=== PATIENT | female | born 2000 | race Caucasian/White ===

== ENCOUNTER 2021-05-22 17:48 | Emergency (ER) | payer BC, SELFPAY ==
[2021-05-22 17:59] VITALS: BP 128/82; BP 129/77; PULSE 100; RESP 16; TEMP 36.9; O2SAT 98; BMI 21.2
[2021-05-22 18:05] VITALS: BP 129/74; PULSE 100; RESP 16; TEMP 36.9; O2SAT 98
--- NOTE | 2021-05-22 18:11 | ED_ITS ---
HPI - Psych General Chief Complaint: Psychiatric Symptoms Stated Complaint: crisis Time Seen by Provider: 05/22/21 18:10 Source: patient and EMS Mode of arrival: EMS Limitations: no limitations History of Present Illness HPI Narrative: 20-year-old female with posttraumatic stress disorder, depression and previous thoughts of suicidal ideation presents the emergency department with thoughts of suicide ideation, and self inflicted wounds X1 day. She states that today she felt like she suddenly could not control her feelings, or her emotions, which prompted her to visit [facility] counseling service. She does not recall a particular trigger. She states that prior to speaking to them, she did not self-harm, however she expressed that she is feeling increased depression, overwhelmed, racing thoughts. She states after she hung up the phone with them she grabbed a knife, and wanted to stab herself in the throat, to end her life, however she did not stop her throat, instead she cut herself superficially to the left forearm. She states she has been suicidal in the past, has never acted on her plan, she has had no previous psych admissions. She denies alcohol, drug, tobacco use. She denies homicidal ideation. Denies tactile, visual, auditory hallucinations, chest pain, abdominal pain, nausea, vomiting, intentional overdoses, fevers, chills, weakness, shortness of breath. She currently takes Tamika LUTHER complaint: suicidal ideation, feels depressed and anxiety Onset (ago): day(s) (1) Duration: constant History of same: Yes Relieving factors: none Exacerbating factors: none Associated psychiatric symptoms: depression, suicidal ideation (With plan to stab herself in the throat with a knife) and racing thoughts Associated symptoms: denies other symptoms Treatments prior to arrival: none If self harm: admits thoughts of self harm, has plan (Stabbing) and self- inflicted trauma (Small superficial linear lacks to the left arm, not requiring sutures.) Related Data Allergies Allergy/AdvReac Type Severity Reaction Status Date / Time Penicillins Allergy Rash Verified 05/22/21 18:29 Review of Systems Review of Systems: Constitutional : No Fever, No Chills Eyes: No Eye Pain, No Swelling, No Redness Cardiovascular : No Chest Pain, No SOB Respiratory : No Cough, No Sputum, No Dyspnea Gastrointestinal : No Nausea, No Vomiting, No Diarrhea, No Hematochezia, No Melena Genitourinary : No Dysuria, No Urinary Frequency, No Hematuria Musculoskeletal : No Myalgias Skin : No Skin Lesions, No rash, positive skin laceration Neuro : No Weakness, No Numbness, No Paresthesias, No Dizziness, No Headache Psych : positive Anxiety, positive Depression, positive SI, NoHI All other systems reviewed and are negative [facility] Past Medical History Attestation statement: The following information was validated with the patient. Source: old records reviewed and nursing notes reviewed Social History Social History Advance Directives: No Advance Directives Information Provided: Yes Physical Exam Vital Signs: Vital Signs: Last Vital Signs Temp 98.4 F 05/22/21 18:05 Pulse 100 05/22/21 18:05 Resp 16 05/22/21 18:05 BP 129/74 05/22/21 18:05 Pulse Ox 98 05/22/21 18:05 Body Mass Index 21.2 Appearance: Alert. Oriented X3. No acute distress. Appears anxious. Eyes: Pupils equal, round and reactive to light. ENT: Pharynx normal. Neck: Normal inspection. Neck supple. CVS: Normal heart rate and rhythm. Pulses normal. Respiratory: No respiratory distress. Breath sounds normal. Abdomen: Soft and nontender. Skin: Skin warm and dry. Normal skin color. Normal skin turgor. + two linear superficial lacerations to left forearm, do not require sutures. Extremities: No lower extremity edema. No calf ttp Neuro: Oriented X 3. No motor deficit. No sensory deficit. CN 2-12 intact, No auditory/tactile/visual hallucinations Course Course Course Narrative: Physician observation started at 715pm Patient placed in [facility] sician observation because the patient needed more time for CARE team evaluation for disposition. At the time observation was started the patient's vitals were stable, patient is alert and oriented but slightly anxious, Neuro: nonfocal, CV RRR, Lungs clear MDM - Psych MDM Narrative Medical decision making narrative: 20-year-old female pmhx of PTSD brought in by ambulance from her college campus with concerns of self-inflicted wounds to the left forearm, and suicidal ideation with plan to stab herself in the throat with a knife X1 day. No new medications. No previous psych admissions. Denies alcohol, tobacco, and substance abuse. Denies visual, auditory, and tactile hallucinations. Basic labs will be ordered at this time, as well as a COVID, EtOH, drug screen, liver panel, urine test, and care team evaluation. Lab Data Result diagrams: 05/22/21 18:47 05/22/21 18:47 Labs: Lab Results 05/22/21 05/22/21 05/22/21 Range/Units 18:34 18:34 18:39 WBC (4.8-10.8) X10*3/uL RBC (4.20-5.50) X10*6/uL Hgb (12.0-16.0) g/dl Hct (37-47) % MCV (80-98) fL MCH (27.0-33.0) pg MCHC (31.0-35.0) g/dl RDW (11.0-16.0) % Plt Count (160-400) X10*3/uL MPV (9.4-12.3) fL Immature Gran % (Auto) (0.0-0.4) % Neut % (Auto) (45-73) % Lymph % (Auto) (20-40) % Jenkins % (Auto) (2-11) % Eos % (Auto) (0-4) % Baso % (Auto) (0-2) % Lymph # (Auto) (1.2-4.9) X10*3/uL Jenkins # (Auto) (0.1-1.2) X10*3/uL Eos # (Auto) (0.0-0.4) X10*3/uL Baso # (Auto) (0.0-0.2) X10*3/uL Abs Immat Gran (auto) (0.00-0.03) X10*3/uL Absolute Neuts (auto) (2.0-8.3) X10*3/uL Absolute Nucleated RBC (0.0-0.012) X10*3/uL Nucleated RBC % (auto) (0.0-0.2) /100WBC Sodium (135-145) mmol/L Potassium (3.3-5.1) mmol/L Chloride (96-108) mmol/L Carbon Dioxide (22-29) mmol/L Anion Gap (12-20) BUN (9-16) mg/dL Creatinine (0.5-1.4) mg/dL Estim Creat Clear Calc Estimated GFR Random Glucose (60-115) mg/dL Calcium (8.4-10.2) mg/dL Total Bilirubin (0.0-1.0) mg/dL Direct Bilirubin (0.0-0.5) mg/dL AST (5-31) U/L ALT (0-31) U/L Alkaline Phosphatase (39-117) U/L Total Protein (6.5-8.0) g/dL Albumin (3.5-5.0) g/dL Urine Test NEGATIVE (NEGATIVE) Urine Opiates Screen Not Detected (Not Detect) Urine Fentanyl Screen Not Detected (Not Detect) Ur Barbiturates Screen Not Detected (Not Detect) Ur Phencyclidine Scrn Not Detected (Not Detect) Ur Amphetamines Screen Not Detected (Not Detect) U Benzodiazepines Scrn Not Detected (Not Detect) Urine Cocaine Screen Not Detected (Not Detect) U Marijuana (THC) Screen Not Detected (Not Detect) Ethyl Alcohol mg/dL COVID-19 (FELICIA) Negative (Negative) COVID-19 Clin Com See Note 05/22/21 05/22/21 05/22/21 Range/Units 18:47 18:47 18:47 WBC 8.6 (4.8-10.8) X10*3/uL RBC 4.37 (4.20-5.50) X10*6/uL Hgb 13.4 (12.0-16.0) g/dl Hct 37.7 (37-47) % MCV 86.3 (80-98) fL MCH 30.7 (27.0-33.0) pg MCHC 35.5 H (31.0-35.0) g/dl RDW 11.5 (11.0-16.0) % Plt Count 256 (160-400) X10*3/uL MPV 10.1 (9.4-12.3) fL Immature Gran % (Auto) 0.2 (0.0-0.4) % Neut % (Auto) 73.0 (45-73) % Lymph % (Auto) 21.1 (20-40) % Jenkins % (Auto) 5.1 (2-11) % Eos % (Auto) 0.5 (0-4) % Baso % (Auto) 0.1 (0-2) % Lymph # (Auto) 1.8 (1.2-4.9) X10*3/uL Jenkins # (Auto) 0.4 (0.1-1.2) X10*3/uL Eos # (Auto) 0.0 (0.0-0.4) X10*3/uL Baso # (Auto) 0.0 (0.0-0.2) X10*3/uL Abs Immat Gran (auto) 0.02 (0.00-0.03) X10*3/uL Absolute Neuts (auto) 6.2 (2.0-8.3) X10*3/uL Absolute Nucleated RBC 0.000 (0.0-0.012) X10*3/uL Nucleated RBC % (auto) 0.0 (0.0-0.2) /100WBC Sodium 139 (135-145) mmol/L Potassium 4.1 (3.3-5.1) mmol/L Chloride 106 (96-108) mmol/L Carbon Dioxide 24 (22-29) mmol/L Anion Gap 13 (12-20) BUN 12 (9-16) mg/dL Creatinine 0.80 (0.5-1.4) mg/dL Estim Creat Clear Calc 112.4 Estimated GFR > 60 Random Glucose 98 (60-115) mg/dL Calcium 9.9 (8.4-10.2) mg/dL Total Bilirubin 0.4 (0.0-1.0) mg/dL Direct Bilirubin 0.2 (0.0-0.5) mg/dL AST 24 (5-31) U/L ALT 28 (0-31) U/L Alkaline Phosphatase 81 (39-117) U/L Total Protein 7.9 (6.5-8.0) g/dL Albumin 4.9 (3.5-5.0) g/dL Urine Test (NEGATIVE) Urine Opiates Screen (Not Detect) Urine Fentanyl Screen (Not Detect) Ur Barbiturates Screen (Not Detect) Ur Phencyclidine Scrn (Not Detect) Ur Amphetamines Screen (Not Detect) U Benzodiazepines Scrn (Not Detect) Urine Cocaine Screen (Not Detect) U Marijuana (THC) Screen (Not Detect) Ethyl Alcohol < 10 mg/dL COVID-19 (FELICIA) (Negative) COVID-19 Clin Com Discharge Plan Discharge Clinical Impression: Abrasion Depression Qualifiers: Depression Type: unspecified Qualified Code(s): F32.A - Depression, unspecified
[2021-05-22 18:53] LABS: MANUAL DIFF FLAG NO
[2021-05-22 19:02] LABS: Basophils Percent Auto 0.1 % (0-2); Eosinophils Percent Auto 0.5 % (0-4); Hematocrit 37.7 % (37-47); Hemoglobin 13.4 g/dl (12.0-16.0); Imm Gran Abs Auto 0.02 X10*3/uL (0.00-0.03); Imm Gran Pct Auto 0.2 % (0.0-0.4); Lymphocytes Absolute Auto 1.8 X10*3/uL (1.2-4.9); Lymphocytes Percent Auto 21.1 % (20-40); Mean Corpuscular HGB Conc 35.5 g/dl (31.0-35.0); Mean Corpuscular Hemoglobin 30.7 pg (27.0-33.0); Mean Corpuscular Volume 86.3 fL (80-98); Mean Platelet Volume 10.1 fL (9.4-12.3); Monocytes Absolute Auto 0.4 X10*3/uL (0.1-1.2); Monocytes Percent Auto 5.1 % (2-11); Neutrophils Absolute Auto 6.2 X10*3/uL (2.0-8.3); Platelet Count 256 X10*3/uL (160-400); Red Blood Count 4.37 X10*6/uL (4.20-5.50); Red Cell Distribution Width 11.5 % (11.0-16.0); White Blood Count 8.6 X10*3/uL (4.8-10.8)
[2021-05-22 19:06] LABS: Ethanol < 10 mg/dL
[2021-05-22 19:10] LABS: Amphetamine Screen Urine Not Detected (Not Detect); Barbiturates, Urine Not Detected (Not Detect); Benzodiazepines Screen Urine Not Detected (Not Detect); Cannabinoid Screen Urine Not Detected (Not Detect); Cocaine Screen Urine Not Detected (Not Detect); Fentanyl, urine Not Detected (Not Detect); Opiate Screen Urine Not Detected (Not Detect); Phencyclidine Screen Urine Not Detected (Not Detect)
[2021-05-22 19:11] LABS: COVID-19 Test Negative (Negative); IDNOW Serial# 9DD0AD1C
[2021-05-22 19:11] LABS: UPreg QC Valid YES; Urine Pregnancy NEGATIVE (NEGATIVE)
[2021-05-22 19:11] LABS: Alanine Aminotransferase 28 U/L (0-31); Albumin Level 4.9 g/dL (3.5-5.0); Alkaline Phosphatase 81 U/L (39-117); Anion Gap 13 (12-20); Aspartate Amino Transferase 24 U/L (5-31); Bilirubin Direct 0.2 mg/dL (0.0-0.5); Bilirubin Total 0.4 mg/dL (0.0-1.0); Blood Urea Nitrogen 12 mg/dL (9-16); Calcium 9.9 mg/dL (8.4-10.2); Carbon Dioxide 24 mmol/L (22-29); Chloride 106 mmol/L (96-108); Creatinine Clr Calc Pharmacy 112.4; Estimated Glomerular Filt Rate > 60; Glucose Random 98 mg/dL (60-115); Potassium 4.1 mmol/L (3.3-5.1); Sodium 139 mmol/L (135-145); Total Protein 7.9 g/dL (6.5-8.0)
--- NOTE | 2021-05-22 19:33 | PHA.MEDREC ---
Pharmacy Consult ? Medication Reconciliation Pharmacy has completed the medication reconciliation. Patient reports she was switched from Lexapro to Cymbalta. Anali Odom, ShantellD
--- NOTE | 2021-05-22 23:19 | MHC.CARE ---
CARE team evaluated pt. Plan is for reassessment in the morning and if there are no ongoing safety concerns CARE team will contact the [facility] counseling center to coordinate return to campus.
[2021-05-23 02:19] VITALS: BP 133/85; PULSE 98; RESP 17; TEMP 36.9; O2SAT 98
--- NOTE | 2021-05-23 05:02 | PC.NURSE ---
Patient slept through the night, no distress observed/reported, patient's behavior calm and quiet, appetite good, mood pleasant, VSS, patient was evaluated by care team with disposition to F/U in the morning, VSS, will continue to monitor.
--- NOTE | 2021-05-23 07:37 | PC.NURSE ---
sleeping. friend has been present with patient. both are calm.
--- NOTE | 2021-05-23 08:43 | PC.NURSE ---
Awake, calm. States that life trauma and stressers came to a head Denies SI at this time. States that going back to campus is her preferred plan. Awaits CARE team update.
[2021-05-23 09:14] VITALS: BP 118/79; PULSE 82; RESP 15; O2SAT 97
[2021-05-23] MEDS: DULoxetine HCl 20 MG CAPSULE.DR 40 MG PO (09:33)
[2021-05-23] MEDS: Magnesium Oxide 400 MG TABLET 200 MG PO (09:33)
== END 2021-05-23 11:58 | disposition home or self-care (01) ==
PROVIDERS: Emergency Provider Emergency Medicine
DX: S50.812A Abrasion of left forearm, initial encounter (principal); F32.A Depression, unspecified; F43.10 Post-traumatic stress disorder, unspecified; X78.1XXA Intentional self-harm by knife, initial encounter; Y93.9 Activity, unspecified; Y92.214 College as the place of occurrence of the external cause; Y99.9 Unspecified external cause status; Z20.822 Contact with and (suspected) exposure to COVID-19
CPT/HCPCS: 36415; 80048; 80076; 80307; 81025; 82077; 85025; 87635; 99284

== ENCOUNTER 2021-09-01 11:00 | Outpatient (RCR) | payer BC, SELFPAY ==
[2021-08-18 11:16] VITALS: BMI 22.8
--- NOTE | 2021-08-18 11:36 | PC.ADMIT ---
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 Patient reports having nightmares a few nights a week and wakes frequently as a result. Patient reports self harming behaviors stating she last pulled her hair this morning and has a history of superficially cutting her arms and stomach last time last week. Patient also reports episodes of dissociation. In addition, patient reports struggling with heightened sensory issues, anxiety and fear. Patient is currently taking time off from her classes that start on Saturday to work on her mental health and has alerted her professors regarding taking time off from classes in the next few weeks to complete PHP. In addition patient reports drinking ETOH 1-2 x a month drinking from 1-6 drinks. Patient is alert and oriented x4. Calm and cooperative. Presents with depressed mood and affect. Denied SI stated she does not have active thoughts or self harming thoughts at present. Asked patient who she could reach out to if she felt unsafe and she stated her mother, friends, therapist, or help lines. Medications reconciled with patient and patient's pharmacy. Patient reports taking her medications as prescribed.
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
--- NOTE | 2021-08-21 14:57 | PC.NURSE ---
Case opened in treatment team
--- NOTE | 2021-08-24 12:17 | HO.PHPPROGNO ---
Subjective Subjective Date of Service: 08/24/21 Reason For Visit: Generalized Anxiety D/o, PTSD Guardianship: No Medical Problems Affecting Mental Status: No Interim History: Describes mood as: I'm alright, not the best . Reports dissociative episode lasting several minutes this morning. Reports feeling a little girl was in there with me, and may want to hurt me . Reports feeling safe, denies that this is any type of SI. Reports that it is more of a dissociative episode. Has not yet started higher dose of Abilify 5 mg at was ordered last week. Taking Cymbalta as prescribed by outpatient provider. Medication Compliance: Intermittent Side effects from medications: No Attending Groups: Yes Review of Systems Acute medical concerns: No Medical Review of Systems: unchanged Review of Systems Review of Systems Yes all other systems are reviewed and are negative Constitutional: Reports no additional constitutional complaints Mental Status Exam Mental Status Exam Narrative: Well-developed, well-nourished female, in NAD. No involuntary movements noted, motor activity calm. Patient Appearance: Well Grooomed and Appropriate Patient Orientation: Person, Place, Time and Situation Level of Consciousness: Appropriate and Alert Patient Behavior: Appropriate, Cooperative and Good Eye Contact Mood Description: Appropriate and Anxious Affect Description: Appropriate and Anxious Patient Cognition Impaired: No Ability to Follow Directions: Excellent Speech Pattern: Clear, Appropriate, Coherent and Soft-Spoken Memory Description: Intact Hallucinations: None Perceptual Disturbances: Depersonalization and Derealization Thought Process: Intact and Goal Oriented Thought Content: positive for Obsessional Thoughts and positive for Perseveration Depressive Symptoms: Increased Anxiety, Difficulty Sleeping, Loss of Int. in Activity, Hopelessness and Difficulty Concentrating Judgement: Fair Diagnostics Vital Signs (24Hr): BMI result Body Mass Index 22.8 Assessment & Plan Assessment & Plan (1) Post-traumatic stress disorder, chronic: Status: Acute Code(s): F43.12 - Post-traumatic stress disorder, chronic Assessment and Plan: Patient reports dissociative state this morning, feeling as if she had a little girl inside her that wanted to harm her. She states this only lasted for several minutes, and that she does not believe it was any type of suicidal ideation. Reports she feels safe at this time. Grounding techniques reviewed. Client has not yet picked up Abilify 5 mg from pharmacy that was prescribed last week. 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 Continues with Cymbalta as prescribed by outpatient providers. (2) Generalized anxiety disorder: Status: Acute Code(s): F41.1 - Generalized anxiety disorder Plan 1. Patient encouraged to poultry picking machine tender script and start the Abilify at higher dose of 5 mg. 2. Patient continues with Cymbalta as prescribed by outpatient providers. 3. Encouraged to practice grounding techniques. 4. Continue to follow PHP plan of care. 5. Follow-up as per protocol. Patient educated on: diagnosis, medication risk/benefits and therapeutic strategies Informed Consent: understands Reason for contiued partial hosp. stay Substantial Risk for: harm to self, inability to function and med/psych decompensation Certification I certify that partial hospital treatment is medically necessary due to the symptoms and problems resulting from the patient's mental illness and the failure to treat the patient at the partial hospital level of care would likely result in the patient requiring inpatient psychiatric care which could not be prevented at a less intensive level of care. I spent minutes with the patient and/or on the patient floor today, greater than?50% of which was spent counseling/coordinating care. Discharge Plan Discharge Attending provider: Aries Collazo Medications: New aripiprazole [Abilify] 5 mg tablet 5 mg PO DAILY 14 Days Qty: 14 0RF Discontinued aripiprazole [Abilify] 2 mg Tablet 2 mg PO DAILY 0RF No Action magnesium 200 mg Tablet 200 mg PO DAILY 0RF duloxetine 20 mg capsule,delayed release(DR/EC) 40 mg PO DAILY 0RF riboflavin (vitamin B2) 400 mg Tablet 400 mg PO DAILY 0RF melatonin 2.5 mg Tablet,Chewable 2.5 mg PO BEDTIME PRN (Reason: Insomnia) 0RF Telehealth Telehealth Location of provider rendering services: practice address Location of patient: address on file Patient Identification confirmed using: Name, : Yes Telehealth method: video Patient verbally consented to treatment: Yes Patient verbally consented to billing insurance company: Yes Patient informed of any privacy concerns related to visit: Yes Time spent with patient (mins): 20
--- NOTE | 2021-08-25 10:27 | PC.NURSE ---
I called Jessica Porter [facility] to inform of clients progress and dc date of 09/01/21
--- NOTE | 2021-08-31 13:14 | P.PNPSP_ITS ---
Subjective Subjective Date of Service: 08/31/21 Reason For Visit: Generalized Anxiety D/o, PTSD Guardianship: No Medical Problems Affecting Mental Status: No Interim History: Judy reports continued dissociative episodes, reports four young girls inside her, talking. Denies SI, although some passive thoughts of SIB. Describes mood as eh . Taking medications as prescribed. Reports less intrusive thoughts, feels Abilify is helping. Medication Compliance: Yes Side effects from medications: No Attending Groups: Yes Review of Systems Acute medical concerns: No Medical Review of Systems: unchanged Review of Systems Review of Systems Yes all other systems are reviewed and are negative Constitutional: Reports no additional constitutional complaints Mental Status Exam Mental Status Exam Narrative: Well-developed, well-nourished female, in NAD. No tics/tremors, fully attentive during encounter. Patient Appearance: Well Grooomed, Fatigued and Appropriate Patient Orientation: Person, Place, Time and Situation Level of Consciousness: Appropriate and Alert Patient Behavior: Appropriate, Cooperative and Good Eye Contact Mood Description: Flat Affect Description: Anxious and Flat Patient Cognition Impaired: No Ability to Follow Directions: Excellent Speech Pattern: Clear, Appropriate, Coherent and Soft-Spoken Memory Description: Intact Hallucinations: None Perceptual Disturbances: Depersonalization (reports losing 10 minutes of time yesterday, due to dissociative episode. ) and Derealization Thought Process: Intact and Goal Oriented Thought Content: positive for Obsessional Thoughts (reports lessened intrusive thoughts.) Depressive Symptoms: Increased Anxiety, Loss of Int. in Activity, Unhappiness and Difficulty Concentrating Judgement: Fair Diagnostics Vital Signs (24Hr): BMI result [place] 4 Body Mass Index Verd[place] 4 22.8 Verdana 4 Verdana 4 Assessment & Plan Assessment & Plan (1) Post-traumatic stress disorder, chronic: Status: Acute Code(s): F43.12 - Post-traumatic stress disorder, chronic Assessment and Plan: Client describes increased dissociative episodes, reports losing ?10 minutes of time ?yesterday. Describes for little girls talking inside her, explains it as ?excessive talking, switching back and forth ?. Reports she started talking to the voices, which has increased the chatter. Reports she felt as if the youngest girl, named Embertonya, took over briefly yesterday when she lost the 10 minutes. Denies any SI, reports feels safe. Does describe some passive thoughts of SIB, with no intent to cut or otherwise harm self. Discussed recent stressors, such as starting new semester of school. Discussed role this may be playing in increased levels of stress, which may be precipitating an increase in dissociative episodes, along with memories of past trauma as a trigger as well. She is currently working with outpatient therapist, and last saw a therapist 2 days ago. She reports they are discussing these concerns of dissociative episodes, and she is fully engaged in treatment regarding this. Discussed medications, states Abilify appears to be helping with intrusive thoughts. Feels she may benefit from an increase in duloxetine. We discussed increasing medication. She stated she would rather wait for a little longer, to see if the Abilify dose of 5 mg, which was increased recently, becomes more effective, before any medication increase. (2) Generalized anxiety disorder: Status: Acute Code(s): F41.1 - Generalized anxiety disorder Plan 1. Continue with current doses of duloxetine and Abilify. Thirty day script for Abilify sent to pharmacy. 2. Last day in [facility] is tomorrow, client encouraged to contact outpatient psychiatric provider to schedule sooner appointment, as she reports she is seeing him sometime in either September or October. 3. Continue with current [facility] plan of care. 4. Client reports feeling safe, denies any SI, either active or passive. Patient educated on: diagnosis, medication risk/benefits and therapeutic s trategies Informed Consent: understands Reason for contiued partial hosp. stay Substantial Risk for: stable for discharge Certification I certify that partial hospital treatment is medically necessary due to the symptoms and problems resulting from the patient's mental illness and the hayden lure to treat the patient at the partial hospital level of care would likely result in the patient requiring inpatient psychiatric care which could not be prevented at a less intensive level of care. I spent minutes with the patient and/or on the patient floor today, greater than?50% of which was spent counseling/coordinating care. Discharge Plan Discharge Attending provider: Aries Collazo Medications: New aripiprazole [Abilify] 5 mg tablet 5 mg PO DAILY 30 Days Qty: 30 0RF Discontinued aripiprazole [Abilify] 2 mg Tablet 2 mg PO DAILY 0RF No Action magnesium 200 mg Tablet 200 mg PO DAILY 0RF duloxetine 20 mg capsule,delayed release(DR/EC) 40 mg PO DAILY 0RF riboflavin (vitamin B2) 400 mg Tablet 400 mg PO DAILY 0RF melatonin 2.5 mg Tablet,Chewable 2.5 mg PO BEDTIME PRN (Reason: Insomnia) 0RF Telehealth Telehealth Location of provider rendering services: practice address Location of patient: address on file Patient Identification confirmed using: Name, : Yes Telehealth method: video Patient verbally consented to treatment: Yes Patient informed of any privacy concerns related to visit: Yes Time spent with patient (mins): 20
--- NOTE | 2021-09-01 10:00 | PC.NURSE ---
Patient is scheduled to discharge from the program today. Patient reports they feel good about discharge. Denied SI or safety concerns. Reviewed patient medications with patient. Patient reports taking medications as prescribed.
== END 2021-09-01 23:59 | disposition home or self-care (01) ==
LOC: HO.PHPA 11:00
PROVIDERS: Visit Provider Psychiatry & Neurology Psychiatry
DX: F41.1 Generalized anxiety disorder (principal); F43.12 Post-traumatic stress disorder, chronic; Z79.899 Other long term (current) drug therapy
CPT/HCPCS: 90791; 90853

== ENCOUNTER 2021-09-21 13:20 | Emergency (ER) | payer BC, SELFPAY ==
--- NOTE | ~2021-09-21 | CT_ITS ---
EXAMINATION: CT ABDOMEN AND PELVIS WITHOUT CONTRAST CLINICAL INFORMATION: l sided pain etiology?? . COMPARISON: No pertinent prior studies are available for comparison. TECHNIQUE: Multidetector volumetric imaging was performed from the superior aspect of the liver through the pubic symphysis without contrast per renal stone protocol. Sagittal and coronal reformatted images were obtained on the technologist workstation. This CT examination was performed using dose optimization techniques as appropriate, variously including the following: *Automated exposure control *Adjustment of mA and/or kV according to patient size (this includes techniques or standardized protocols for targeted exams where dose is matched to indication/reason for exam; i.e. extremities or head) *Use of iterative reconstruction technique DLP: 570 mGy-cm. FINDINGS: LUNG BASES: The visualized lung bases are unremarkable. Small pericardial effusion is noted of uncertain significance or etiology. LIVER, GALLBLADDER, BILIARY TREE: The non-contrast liver is normal in size, shape, and attenuation. No focal hepatic lesion or biliary ductal dilatation is present. The gallbladder is unremarkable with no evidence of radiopaque gallstones, gallbladder wall thickening, or obvious pericholecystic inflammatory changes. PANCREAS: Unremarkable. SPLEEN: Unremarkable. ADRENAL GLANDS: Unremarkable. KIDNEYS AND URETERS: The kidneys are normal in size, shape, and attenuation. No hydronephrosis, hydroureter, or calculi seen. No perinephric stranding. BLADDER: Unremarkable. GASTROINTESTINAL TRACT: The small and large bowel are unremarkable. The appendix is unremarkable. No periappendiceal inflammatory changes ABDOMINAL WALL: No significant hernia is appreciated. LYMPHOVASCULAR STRUCTURES: No lymphadenopathy. The aorta is unremarkable.. PELVIC VISCERA: Intravaginal probable menstrual cup noted OSSEUS STRUCTURES: Unremarkable. CT/CT abdomen pelvis wo con IMPRESSION: I do not appreciate any acute intra-abdominal process seen. No obvious source of the patient's left-sided pain..
[2021-09-21 14:09] VITALS: BP 125/75; PULSE 96; RESP 18; TEMP 36.9; O2SAT 99; BMI 25.8
[2021-09-21 14:47] LABS: MANUAL DIFF FLAG NO
[2021-09-21 14:49] LABS: Appearance Urine CLEAR; Color Urine YELLOW; Eosinophils Absolute Auto 0.1 X10*3/uL (0.0-0.4); Eosinophils Percent Auto 2.2 % (0-4); Glucose Urine UA NEG (NEG); Hematocrit 35.3 % (37.0-47.0); Hemoglobin 12.1 g/dl (12.0-16.0); Imm Gran Abs Auto 0.02 X10*3/uL (0.00-0.03); Imm Gran Pct Auto 0.3 % (0.0-0.4); Leukocyte Esterase Urine NEG (NEG); Lymphocytes Absolute Auto 1.5 X10*3/uL (1.2-4.9); Lymphocytes Percent Auto 25.8 % (20-40); Mean Corpuscular HGB Conc 34.3 g/dl (31.0-35.0); Mean Corpuscular Hemoglobin 29.6 pg (27.0-33.0); Mean Corpuscular Volume 86.3 fL (80.0-98.0); Monocytes Absolute Auto 0.4 X10*3/uL (0.1-1.2); Monocytes Percent Auto 6.2 % (2-11); Neutrophils Absolute Auto 3.9 x10*3/uL (2.0-8.3); Neutrophils Percent Auto 65.5 % (45-73); Nitrite Urine NEG (NEG); Platelet Count 227 X10*3/uL (160-400); Red Blood Count 4.09 X10*6/uL (4.20-5.50); Red Cell Distribution Width 11.5 % (11.0-16.0); Urine Blood NEG (NEG); Urine Ketones NEG (NEG); Urine Protein NEG (NEG-TRACE); White Blood Count 5.9 X10*3/uL (4.8-10.8)
[2021-09-21 14:55] LABS: UPreg QC Valid YES; Urine Pregnancy NEGATIVE (NEGATIVE)
[2021-09-21 15:05] LABS: Alanine Aminotransferase 23 U/L (0-31); Albumin Level 4.6 g/dL (3.5-5.0); Alkaline Phosphatase 77 U/L (39-117); Anion Gap 11 (12-20); Aspartate Amino Transferase 19 U/L (5-31); Bilirubin Direct < 0.2 mg/dL (0.0-0.5); Bilirubin Total 0.3 mg/dL (0.0-1.0); Blood Urea Nitrogen 11 mg/dL (9-16); Calcium 9.5 mg/dL (8.4-10.2); Carbon Dioxide 26 mmol/L (22-29); Chloride 106 mmol/L (96-108); Creatinine Clr Calc Pharmacy 136.1; Estimated Glomerular Filt Rate > 60; Glucose Random 88 mg/dL (60-115); Potassium 3.9 mmol/L (3.3-5.1); Sodium 139 mmol/L (135-145); Total Protein 7.4 g/dL (6.5-8.0)
[2021-09-21] MEDS: Acetaminophen 325 MG TABLET 650 MG PO (17:55)
--- NOTE | 2021-09-21 18:39 | ED.GENADULT ---
HPI - General Adult General Chief complaint: General Medical Stated complaint: both legs cold unable lift Time Seen by Provider: 09/21/21 18:02 Source: patient Mode of arrival: ambulatory Limitations: no limitations History of Present Illness HPI narrative: Patient is here PTSD, depression, anxiety, fibromyalgia complaining of left sided pain along with nausea feeling weak shaking eliminate feel the legs are cold started on Risperdal 1 week ago Related Data Home Medications Medication Instructions Recorded Confirmed duloxetine 20 mg capsule,delayed 40 mg PO DAILY 05/22/21 08/18/21 release magnesium 200 mg tablet 200 mg PO DAILY 05/22/21 08/18/21 riboflavin (vitamin B2) 400 mg 400 mg PO DAILY 05/22/21 08/18/21 tablet melatonin 2.5 mg chewable tablet 2.5 mg PO BEDTIME PRN 08/18/21 08/18/21 cholecalciferol (vitamin D3) 25 25 mcg PO DAILY 09/01/21 09/01/21 mcg (1,000 unit) tablet (Vitamin D3) Previous Rx's Medication Instructions Recorded aripiprazole 5 mg tablet (Abilify) 5 mg PO DAILY 30 Days #30 tab 08/31/21 diphenhydramine HCl 25 mg capsule 25 mg PO Q6H PRN #30 cap 09/21/21 (Benadryl) Allergies Allergy/AdvReac Type Severity Reaction Status Date / Time Penicillins Allergy Rash Verified 05/22/21 18:29 Review of Systems Review of Systems: Yes all other systems are reviewed and are negative PMFSH Past Medical History Medical History Fibromyalgia Hemangioma History of concussion Migraine 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 Social History Social History Household Members: Other Household Members Other:: Bridger Dorm Patient Tobacco Use Status: Never used Tobacco Advance Directives: No Advance Directives Information Provided: No Patient : No Physical Exam ED Vital Signs: Vital Signs - 24 hr 09/21/21 14:09 09/21/21 18:58 09/21/21 21:40 Temperature 98.4 F 97.9 F Pulse Rate 96 94 130 H Respiratory Rate 18 16 Blood Pressure 125/75 120/71 123/80 Pulse Oximetry 99 97 09/21/21 21:45 09/21/21 21:46 Temperature Pulse Rate 104 H 108 H Respiratory Rate Blood Pressure 119/62 123/76 Pulse Oximetry BMI result Body Mass Index 25.8 Appearance: Alert. Oriented X3. No acute distress. Anxious Eyes: PERRLA, No Nystagmus ENT: Pharynx normal. Oral Mucosa moist Neck: Normal inspection. Neck supple. CVS: Normal heart rate and rhythm. Pulses normal. Respiratory: No respiratory distress. Equal air entry bilateral, no wheezing/rales/rhonchi Abdomen: Soft and nontender. Bowel sounds are present, no mass palpable, slight tenderness left flank area Skin: Skin warm and dry. Normal skin color. Normal skin turgor. Extremities: No lower extremity edema. No calf tenderness peripheral pulses palpable Neuro: Oriented X 3. No motor deficit. No sensory deficit.No cerebellar signs , cranial nerves II-XII intact deep tendon reflexes 2+ Course Course Course Narrative: Patient with vague symptoms able to stand up and walk says that when she lifts her legs start shaking which was not seen when patient was walking will give her Ativan check CRP sed rate and magnesium level Medical Decision Making Lab Data Lab results reviewed: Yes I reviewed the patient's lab results. Result diagrams: 09/21/21 14:40 09/21/21 14:40 Labs: Lab Results 09/21/21 09/21/21 09/21/21 Range/Units 14:40 14:40 14:40 WBC 5.9 (4.8-10.8) X10*3/uL RBC 4.09 L (4.20-5.50) X10*6/uL Hgb 12.1 (12.0-16.0) g/dl Hct 35.3 L (37.0-47.0) % MCV 86.3 (80.0-98.0) fL MCH 29.6 (27.0-33.0) pg MCHC 34.3 (31.0-35.0) g/dl RDW 11.5 (11.0-16.0) % Plt Count 227 (160-400) X10*3/uL MPV 10.0 (9.4-12.3) fL Immature Gran % (Auto) 0.3 (0.0-0.4) % Neut % (Auto) 65.5 (45-73) % Lymph % (Auto) 25.8 (20-40) % [place] % (Auto) 6.2 (2-11) % Eos % (Auto) 2.2 (0-4) % Baso % (Auto) 0.0 (0-2) % Lymph # (Auto) 1.5 (1.2-4.9) X10*3/uL [place] # (Auto) 0.4 (0.1-1.2) X10*3/uL Eos # (Auto) 0.1 (0.0-0.4) X10*3/uL Baso # (Auto) 0.0 (0.0-0.2) X10*3/uL Abs Immat Gran (auto) 0.02 (0.00-0.03) X10*3/uL Absolute Neuts (auto) 3.9 (2.0-8.3) x10*3/uL Absolute Nucleated RBC 0.000 (0.0-0.012) X10*3/uL Nucleated RBC % (auto) 0.0 (0.0-0.2) /100WBC ESR (0-20) MM/HR Sodium 139 (135-145) mmol/L Potassium 3.9 (3.3-5.1) mmol/L Chloride 106 (96-108) mmol/L Carbon Dioxide 26 (22-29) mmol/L Anion Gap 11 L (12-20) BUN 11 (9-16) mg/dL Creatinine 0.72 (0.5-1.4) mg/dL Estim Creat Clear Calc 136.1 Estimated GFR > 60 Random Glucose 88 (60-115) mg/dL Calcium 9.5 (8.4-10.2) mg/dL Magnesium 2.2 (1.6-2.6) mg/dL Total Bilirubin 0.3 (0.0-1.0) mg/dL Direct Bilirubin < 0.2 (0.0-0.5) mg/dL AST 19 (5-31) U/L ALT 23 (0-31) U/L Alkaline Phosphatase 77 (39-117) U/L C-Reactive Protein 0.12 (< or = 0.50) mg/dL Total Protein 7.4 (6.5-8.0) g/dL Albumin 4.6 (3.5-5.0) g/dL Urine Color YELLOW Urine Appearance CLEAR Urine pH 6.0 (5.0-8.0) Ur Specific [place] 1.010 (1.005-1.025) Urine Protein NEG (NEG-TRACE) MG/DL Urine Glucose (UA) NEG (NEG) MG/DL Urine Ketones NEG (NEG) MG/DL Urine Blood NEG (NEG) Urine Nitrite NEG (NEG) Ur Leukocyte Esterase NEG (NEG) Urine Test (NEGATIVE) 09/21/21 09/21/21 Range/Units 14:40 14:40 WBC (4.8-10.8) X10*3/uL RBC (4.20-5.50) X10*6/uL Hgb (12.0-16.0) g/dl Hct (37.0-47.0) % MCV (80.0-98.0) fL MCH (27.0-33.0) pg MCHC (31.0-35.0) g/dl RDW (11.0-16.0) % Plt Count (160-400) X10*3/uL MPV (9.4-12.3) fL Immature Gran % (Auto) (0.0-0.4) % Neut % (Auto) (45-73) % Lymph % (Auto) (20-40) % [place] % (Auto) (2-11) % Eos % (Auto) (0-4) % Baso % (Auto) (0-2) % Lymph # (Auto) (1.2-4.9) X10*3/uL [place] # (Auto) (0.1-1.2) X10*3/uL Eos # (Auto) (0.0-0.4) X10*3/uL Baso # (Auto) (0.0-0.2) X10*3/uL Abs Immat Gran (auto) (0.00-0.03) X10*3/uL Absolute Neuts (auto) (2.0-8.3) x10*3/uL Absolute Nucleated RBC (0.0-0.012) X10*3/uL Nucleated RBC % (auto) (0.0-0.2) /100WBC ESR 11 (0-20) MM/HR Sodium (135-145) mmol/L Potassium (3.3-5.1) mmol/L Chloride (96-108) mmol/L Carbon Dioxide (22-29) mmol/L Anion Gap (12-20) BUN (9-16) mg/dL Creatinine (0.5-1.4) mg/dL Estim Creat Clear Calc Estimated GFR Random Glucose (60-115) mg/dL Calcium (8.4-10.2) mg/dL Magnesium (1.6-2.6) mg/dL Total Bilirubin (0.0-1.0) mg/dL Direct Bilirubin (0.0-0.5) mg/dL AST (5-31) U/L ALT (0-31) U/L Alkaline Phosphatase (39-117) U/L C-Reactive Protein (< or = 0.50) mg/dL Total Protein (6.5-8.0) g/dL Albumin (3.5-5.0) g/dL Urine Color Urine Appearance Urine pH (5.0-8.0) Ur Specific [place] (1.005-1.025) Urine Protein (NEG-TRACE) MG/DL Urine Glucose (UA) (NEG) MG/DL Urine Ketones (NEG) MG/DL Urine Blood (NEG) Urine Nitrite (NEG) Ur Leukocyte Esterase (NEG) Urine Test NEGATIVE (NEGATIVE) Discharge Plan Discharge Clinical Impression: Generalized anxiety disorder, Weakness Patient Disposition: Home, Self-Care Instructions: Weakness (ED), Anxiety (ED) Additional Instructions: Continue your medication follow-up with PCP/psychiatrist Oscar for increased muscle spasm Prescriptions: New diphenhydramine HCl [Benadryl] 25 mg capsule 25 mg PO Q6H PRN (Reason: muscle spasm) Qty: 30 0RF No Action magnesium 200 mg Tablet 200 mg PO DAILY 0RF duloxetine 20 mg capsule,delayed release(DR/EC) 40 mg PO DAILY 0RF riboflavin (vitamin B2) 400 mg Tablet 400 mg PO DAILY 0RF melatonin 2.5 mg Tablet,Chewable 2.5 mg PO BEDTIME PRN (Reason: Insomnia) 0RF aripiprazole [Abilify] 5 mg tablet 5 mg PO DAILY 30 Days Qty: 30 0RF cholecalciferol (vitamin D3) [Vitamin D3] 25 mcg (1,000 unit) Tablet 25 mcg PO DAILY 0RF Interventions: ED Discharge Assessment Last Done: 09/21/21 20:59 Discharge Date/Time: 09/21/21 22:20
[2021-09-21 18:58] VITALS: BP 120/71; PULSE 94; RESP 16; TEMP 36.6; O2SAT 97
[2021-09-21] MEDS: LORazepam 1 MG TABLET 2 MG PO (19:07)
--- NOTE | 2021-09-21 19:17 | PC.NURSE ---
DR Shahid at bedside to speak with patient. Patient states that she has pain in her legs x [address] Shahid ordered a CAT SCAN without contrast.
[2021-09-21 19:41] LABS: C Reactive Protein 0.12 mg/dL (< or = 0.50); Magnesium 2.2 mg/dL (1.6-2.6)
[2021-09-21 20:08] LABS: Erythrocyte Sedimentation Rate 11 MM/HR (0-20)
[2021-09-21] MEDS: traMADoL HCL 50 MG TABLET PO (20:41)
[2021-09-21 21:40] VITALS: BP 123/80; PULSE 130
[2021-09-21 21:45] VITALS: BP 119/62; PULSE 104
[2021-09-21 21:46] VITALS: BP 123/76; PULSE 108
== END 2021-09-21 22:20 | disposition home or self-care (01) ==
PROVIDERS: Emergency Provider Internal Medicine
DX: F41.1 Generalized anxiety disorder (principal); R53.1 Weakness; M79.7 Fibromyalgia; R10.9 Unspecified abdominal pain
CPT/HCPCS: 36415; 74176; 80053; 81003; 81025; 82248; 83735; 85025; 85652; 86140; 99284